=== PATIENT | male | born 2005 | race Hispanic/Latino ===

== ENCOUNTER 2023-08-18 00:31 | Emergency (ER) | payer SELFPAY ==
--- NOTE | 2023-08-18 00:47 | EDPHYS ---
Physician Documentation [facility] Name: Darren Lomax Age: 17 yrs Sex: Male : 2005 Arrival Date: 08/18/2023 Time: 00:31 Bed IW1 Private MD: ED Physician Benjamin Sifuentes HPI: 08/18 00:40 This 17 yrs old Male presents to ER via Unassigned with complaints of Back cp Problem. 00:41 The patient's rash thought to be caused by an unknown cause. The rash is located on the cp back and left upper arm and right upper arm. The rash can be described as papular, pustular, burning. Onset: The symptoms/episode began/occurred 1 month(s) ago. Associated signs and symptoms: Pertinent positives: burning sensation, Pertinent negatives: difficulty breathing, fever. Severity of symptoms: in the emergency department the symptoms are unchanged. Historical: - Allergies: 00:42 No Known Allergies; cm10 - Home Meds: 00:42 None [Active]; cm10 - PMHx: 00:42 None; cm10 - PSHx: 00:42 None; cm10 - Immunization history:: Adult Immunizations unknown. - Social history:: Smoking status: Patient denies any tobacco usage or history of. ROS: 00:42 Constitutional: Negative for body aches, chills, fever, weight loss, cp 00:42 ENT: Negative for drainage from ear(s), ear pain, sore throat, difficulty swallowing, difficulty handling secretions, 00:42 Respiratory: Negative for shortness of breath, wheezing, 00:42 Skin: Positive for rash, of the back and right upper arm and left upper arm, 00:42 All other systems are negative, Exam: 00:43 Head/Face: Normocephalic, atraumatic. cp 00:43 Constitutional: The patient appears in no acute distress, alert, awake, non-toxic, well developed, well nourished, 00:43 Cardiovascular: Rate: normal, 00:43 Respiratory: the patient does not display signs of respiratory distress, Respirations: normal, no use of accessory muscles, no retractions, labored breathing, is not present, Breath sounds: are clear throughout, no decreased breath sounds, no stridor, no wheezing, 00:43 Skin: rash a moderate rash is noted, rash can be described as papular, pustular, on the back and left upper arm and right upper arm, Vital Signs: 00:41 BP 129 / 85; Pulse 68; Resp 18 S; Temp 98.4; Pulse Ox 97% on R/A; Pain 0/10; cm10 00:41 Pain Scale: Adult cm10 MDM: 08/17 00:40 Differential diagnosis: impetigo, varicella, zoster, cellulitis. cp 08/18 00:35 Patient medically screened. ec2 00:44 Data reviewed: vital signs, nurses notes, and as a result, I will discharge patient. cp Administered Medications: No medications were administered Disposition: 01:28 Co-signature as Attending Physician, Benjamin Sifuentes MD. ec2 Disposition Summary: 08/18/23 00:46 Discharge Ordered Notes: Location: Home cp Problem: new cp Symptoms: are unchanged cp Condition: Stable cp Diagnosis - Folliculitis cp Followup: cp - With: Private Physician - When: 2 - 3 days - Reason: Worsening of condition Discharge Instructions: - Discharge Summary Sheet cp - Folliculitis cp Forms: - Medication Reconciliation Form cp - Thank You Letter cp - Antibiotic Education cp - Prescription Opioid Use cp - Patient Portal Instructions cp - Leadership Thank You Letter cp Prescriptions: - Doxycycline Hyclate 100 mg Oral Tablet - take 1 tablet ORAL route every 12 hours; 20 tablet; Refills: 0, Product cp Selection Permitted Signatures: Fabian Carvajal PA PA cp Martinez, Clarissa, RN RN cm10 Benjamin Sifuentes MD MD ec2
--- NOTE | 2023-08-18 00:47 | ER ---
Nurse's Notes [facility] Name: Darren Lomax Age: 17 yrs Sex: Male : 2005 Arrival Date: 08/18/2023 Time: 00:31 Bed IW1 Private MD: Diagnosis: Folliculitis Presentation: 08/18 00:41 Chief complaint: Patient states: rash to upper arms and back onset 1 month ago. No cm10 fevers. Coronavirus screen: Vaccine status: Patient reports receiving the 2nd dose of the covid vaccine. Ebola Screen: Patient denies travel to an Ebola-affected area in the 21 days before illness onset. No symptoms or risks identified at this time. Initial Sepsis Screen: Does the patient meet any 2 criteria? No. Patient's initial sepsis screen is negative. Does the patient have a suspected source of infection? No. Patient's initial sepsis screen is negative. Risk Assessment: Do you want to hurt yourself or someone else? Patient reports no desire to harm self or others. Onset of symptoms was August 18, 2023. 00:41 Method Of Arrival: Ambulatory cm10 00:41 Acuity: THEA 4 cm10 Triage Assessment: 00:42 General: Appears in no apparent distress. comfortable, Behavior is calm, cooperative. cm10 Pain: Denies pain. EENT: No deficits noted. No signs and/or symptoms were reported regarding the EENT system. Neuro: No deficits noted. [place]oud Agitation-Sedation Scale (RASS): 0 - Alert and Calm Level of Consciousness is awake, alert, obeys commands, Oriented to person, place, time, situation. Cardiovascular: No deficits noted. Patient's skin is warm and dry. Respiratory: No deficits noted. Airway is patent Respiratory effort is even, unlabored, Respiratory pattern is regular, symmetrical. GI: No deficits noted. No signs and/or symptoms were reported involving the gastrointestinal system. : No deficits noted. No signs and/or symptoms were reported regarding the genitourinary system. Derm: Rash noted that is. Musculoskeletal: No deficits noted. Range of motion: intact in all extremities. Historical: - Allergies: 00:42 No Known Allergies; cm10 - Home Meds: 00:42 None [Active]; cm10 - PMHx: 00:42 None; cm10 - PSHx: 00:42 None; cm10 - Immunization history:: Adult Immunizations unknown. - Social history:: Smoking status: Patient denies any tobacco usage or history of. Screenin:43 [facility] ED Fall Risk Assessment (Adult) History of falling in the last 3 months, cm10 including since admission No falls in past 3 months (0 pts) Confusion or Disorientation No (0 pts) Intoxicated or Sedated No (0 pts) Impaired Gait No (0 pts) Mobility Assist Device Used No (0 pt) Altered Elimination No (0 pt) Score/Fall Risk Level 0 - 2 = Low Risk Oriented to surroundings, Maintained a safe environment, Hourly rounding (assess needs \T\ fall precautionary measures) done. Abuse screen: Denies threats or abuse. Denies injuries from another. Nutritional screening: No deficits noted. Tuberculosis screening: No symptoms or risk factors identified. Vital Signs: 00:41 BP 129 / 85; Pulse 68; Resp 18 S; Temp 98.4; Pulse Ox 97% on R/A; Pain 0/10; cm10 00:41 Pain Scale: Adult cm10 ED Course: 00:34 Patient arrived in ED. mr 00:35 Benjamin Sifuentes MD is Attending Physician. ec2 00:37 Fabian Carvajal PA is PHCP. cp 00:42 Triage completed. cm10 00:43 Arm band placed on Patient placed in waiting room. cm10 00:43 Patient has correct armband on for positive identification. Provided Education on: ER cm10 process and procedures. . 00:43 No provider procedures requiring assistance completed. Patient did not have IV access cm10 during this emergency room visit. Administered Medications: No medications were administered Medication: 00:43 VIS not applicable for this client. cm10 Outcome: 00:43 Discharged to home ambulatory, cm10 00:43 Condition: good 00:43 Discharge instructions given to patient, Instructed on discharge instructions, follow up and referral plans. medication usage, Demonstrated understanding of instructions, follow-up care, medications, Prescriptions given X 1, 00:46 Discharge ordered by . cp 00:50 Patient left the ED. cm10 Signatures: Laura Day, Reg Reg mr Fabian Carvajal PA PA Nena Whitney, JEM RN cm10 Benjamin Sifuentes MD MD ec2
[2023-08-18 04:03] VITALS: BP 129/85; TEMP 98.4; O2SAT 97
== END 2023-08-18 00:50 | disposition home or self-care (01) ==
LOC: ER 00:31
DX: L73.9 Follicular disorder, unspecified (principal)